=== PATIENT | female | born 1960 | race Caucasian/White ===

== ENCOUNTER 2016-11-17 07:51 | Day surgery (SDC) | payer BC, OTHER ==
[2016-11-15 17:17] VITALS: BMI 29.0
[2016-11-17 08:14] VITALS: TEMP 97.6
[2016-11-17] MEDS: LACTATED RINGERS 1,000 ML IV SCH (08:22)
[2016-11-17 08:25] LABS: Glucose,Whole Blood 79 mg/dL (75-99)
[2016-11-17] MEDS ORDERED: LIDOCAINE 1% INJ 10MG/ML (20 ML MDV) ONE (08:51)
[2016-11-17] MEDS ORDERED: PROPOFOL 10 MG/ML 20 ML VIAL IV ONE (08:51)
--- NOTE | 2016-11-17 09:01 | P.GSHP ---
History of Present Illness H&P Date: 11/17/16 Chief Complaint: Screening Patient here today for colonoscopy. She denies bowel complaints. She is family history of colon cancer in her aunt. Past Medical History Past Medical History: Asthma, Hypertension, Osteoarthritis (OA), Pneumonia, Thyroid Disorder Additional Past Medical History / Comment(s): bruises easily, leaky valve, has had pneumonia 3 times,no longer taking meds for HTN,pleurisy Oct 2016,steroids 2015 History of Any Multi-Drug Resistant Organisms: None Reported Past Surgical History: Section, Cholecystectomy, Tonsillectomy Additional Past Surgical History / Comment(s): hemorhoids,ovarian cyst removal Past Anesthesia/Blood Transfusion Reactions: Postoperative Nausea & Vomiting ( PONV) Additional Past Anesthesia/Blood Transfusion Reaction / Comment(s): Pt states she has trouble coming out of it, and they have a hard time putting her under. No hx blood transfusion Past Psychological History: Anxiety Smoking Status: Never smoker Past Alcohol Use History: Rare Past Drug Use History: None Reported - Past Family History Father Additional Family Medical History / Comment(s): heart problems Mother Family Medical History: Hypertension Additional Family Medical History / Comment(s): heart problems,pt's Aunt maternal side had colon CA Medications and Allergies Home Medications Medication Instructions Recorded Confirmed Type Levothyroxine Sodium [Synthroid] 75 mcg PO QAM 06/08/14 11/17/16 History Naproxen 500 mg PO Q12HR PRN 11/15/16 11/17/16 History Allergies Allergy/AdvReac Type Severity Reaction Status Date / Time latex Allergy Rash/Hives Verified 11/17/16 08:15 prednisone Allergy Unknown-states Verified 11/17/16 08:15 "had recently without any problems" Sulfa (Sulfonamide Allergy states Verified 11/17/16 08:15 Antibiotics) "ear drop-caused ear to swell shut" Surgical - Exam Vital Signs Temp Pulse Resp BP Pulse Ox 97.6 F 81 18 135/94 98 11/17/16 08:13 11/17/16 08:13 11/17/16 08:13 11/17/16 08:13 11/17/16 08:13 Physical exam: General: Well-developed, well-nourished HEENT: Normocephalic, sclerae nonicteric Abdomen: Nontender, nondistended Extremities: No edema Neuro: Alert and oriented Assessment and Plan (1) Screening for colon cancer Narrative/Plan: Will proceed with colonoscopy. Status: Acute
--- NOTE | 2016-11-17 09:20 | P.PCN ---
Date of Procedure: 11/17/16 Procedure(s) Performed: PREOPERATIVE DIAGNOSIS: Colon cancer screening POSTOPERATIVE DIAGNOSIS: Normal colon PROCEDURE: Colonoscopy ANESTHESIA: MAC SURGEON: Yazan Bowens M.D. SPECIMENS: None ENDOSCOPIC PROCEDURE: The patient was placed on the endoscopy table in the left decubitus position. The Olympus colonoscope was inserted into the anus and passed under direct visualization to the base of the cecum. The appendiceal orifice was visualized. From that point the scope was slowly withdrawn inspecting all surfaces carefully. There were no neoplastic inflammatory or polypoid lesions throughout the cecum, ascending, transverse, descending, sigmoid and rectum. There was no diverticulosis noted. Digital rectal examination was normal. The patient was taken to the recovery room in stable condition per anesthesia guidelines. RECOMMENDATIONS: Increase fiber. Follow colonoscopy 10 years.
[2016-11-17 09:21] VITALS: RESP 16
[2016-11-17 09:49] VITALS: BP 122/71; PULSE 77
== END 2016-11-17 10:24 | disposition home or self-care (01) ==
LOC: ORWHC2ENDO 07:51
PROVIDERS: ATTEND Surgery
DX: Z12.11 Encounter for screening for malignant neoplasm of colon (principal); Z80.0 Family history of malignant neoplasm of digestive organs; J45.909 Unspecified asthma, uncomplicated; E07.9 Disorder of thyroid, unspecified; M19.90 Unspecified osteoarthritis, unspecified site; Z79.899 Other long term (current) drug therapy; Z88.2 Allergy status to sulfonamides; Z88.8 Allergy status to other drugs, medicaments and biological substances; Z91.040 Latex allergy status; Z79.1 Long term (current) use of non-steroidal anti-inflammatories (NSAID)
CPT/HCPCS: 81025; J2001; J2704; G0121; 99153

== ENCOUNTER 2017-02-08 17:55 | Observation (INO) | payer OTHER ==
[2017-02-08] MEDS ORDERED: ASPIRIN 81 MG CHEW PO STA ×2 (19:58→21:38)
--- NOTE | 2017-02-08 20:20 | ED ---
General Adult HPI - General Chief complaint: Recheck/Abnormal Lab/Rx Stated complaint: diff breathing,weakness Time Seen by Provider: 02/08/17 19:35 Source: patient, RN notes reviewed Mode of arrival: ambulatory Limitations: no limitations - History of Present Illness Initial comments: 56 yo female presents to the ER with cc of chest pain and pressure. Patient states she has been having this pain and shortness of breath since last Sunday. Patient states that when she developed that she developed some right thigh pain. Patient states she's history of cluster headaches. Patient states it radiated into her head. Patient states there is no changes in vision. Patient states that her headache resolved but she continues to have this chest pain and pressure. Patient states sometimes it'll radiate up into the neck but that has been a few days. Patient states the headache is gone but she continues to have chest pain. Patient states today she just continued to feel on so she was doctor and was referred here. At this time patient's chest pressure. Patient denies any recent fever, chills, back pain, abdominal pain, nausea vomiting, numbness or tingling, dysuria or hematuria, constipation or diarrhea, headaches or visual changes, or any other current symptoms. - Related Data Home Medications Medication Instructions Recorded Confirmed Levothyroxine Sodium [Synthroid] 75 mcg PO QAM 06/08/14 02/08/17 Ascorbic Acid [Vitamin C] 500 mg PO DAILY 02/08/17 02/08/17 Cholecalciferol [Vitamin D3] 1,000 unit PO DAILY 02/08/17 02/08/17 Magnesium 200 mg PO DAILY 02/08/17 02/08/17 Multivitamins, Thera [Multivitamin 1 tab PO DAILY 02/08/17 02/08/17 (formulary)] Allergies Allergy/AdvReac Type Severity Reaction Status Date / Time latex Allergy Rash/Hives Verified 02/08/17 19:41 prednisone Allergy Unknown-states Verified 02/08/17 19:41 "had recently without any problems" Sulfa (Sulfonamide Allergy states Verified 02/08/17 19:41 Antibiotics) "ear drop-caused ear to swell shut" Review of Systems ROS Statement: Those systems with pertinent positive or pertinent negative responses have been documented in the HPI. ROS Other: All systems not noted in ROS Statement are negative. Past Medical History Past Medical History: Asthma, Hypertension, Osteoarthritis (OA), Pneumonia, Thyroid Disorder Additional Past Medical History / Comment(s): bruises easily, leaky valve, has had pneumonia 3 times,no longer taking meds for HTN,pleurisy Oct 2016,steroids 2016 History of Any Multi-Drug Resistant Organisms: None Reported Past Surgical History: Section, Cholecystectomy, Tonsillectomy Additional Past Surgical History / Comment(s): hemorhoids,ovarian cyst removal Past Anesthesia/Blood Transfusion Reactions: Postoperative Nausea & Vomiting ( PONV) Additional Past Anesthesia/Blood Transfusion Reaction / Comment(s): Pt states she has trouble coming out of it, and they have a hard time putting her under. No hx blood transfusion Past Psychological History: Anxiety Smoking Status: Never smoker Past Alcohol Use History: None Reported Past Drug Use History: None Reported - Past Family History Father Additional Family Medical History / Comment(s): heart problems Mother Family Medical History: Hypertension Additional Family Medical History / Comment(s): heart problems,pt's Aunt maternal side had colon CA General Exam - General Exam Comments Initial Comments: General: The patient is awake and alert, in no distress, and does not appear acutely ill. Eye: Pupils are equal, round and reactive to light, extra-ocular movements are intact; there is normal conjunctiva bilaterally. No signs of icterus. Ears, nose, mouth and throat: There are moist mucous membranes. Neck: The neck is supple, there is no tenderness. Cardiovascular: There is a regular rate and rhythm. No murmur, rub or gallop is appreciated. Respiratory: Lungs are clear to auscultation, respirations are non-labored, breath sounds are equal. No wheezes, stridor, rales, or rhonchi. Gastrointestinal: Soft, non-distended, non-tender abdomen without masses or organomegaly noted. There is no rebound or guarding present. No CVA tenderness. Bowel sounds are unremarkable. Back: There is no tenderness to palpation in the midline. There is no obvious deformity. No rashes noted. Musculoskeletal: Normal ROM, no tenderness, There is no pedal edema. There is no calf tenderness or swelling. Sensation intact. Pulses equal bilaterally 2+. Neurological: CN II-XII intact, There are no obvious motor or sensory deficits. Coordination appears grossly intact. Speech is normal. Skin: Skin is warm and dry and no rashes or lesions are noted. Psychiatric: Cooperative, appropriate mood & affect, normal judgment. Limitations: no limitations Course Vital Signs 02/08/17 18:00 Temperature 97.8 F Pulse Rate 73 Respiratory 18 Rate Blood Pressure 137/80 O2 Sat by Pulse 98 Oximetry EKG Findings - EKG Comments: EKG Findings:: normal sinus rhythm 63 bpm, normal axis, no atopy, no S-T depressions or elevations, Medical Decision Making - Medical Decision Making 56-year-old female presents emergency Department with a chief complaint of chest pressure and shortness of breath. at this time patient's blood work and imaging does appear to be reviewed and does not show any acute processes. At this time we will admit the patient for cardiac rule out. We discussed this with the patient was in agreement with the plan and all questions have been answered. Patient will be admitted to Dr. coker. - Lab Data Result diagrams: 02/08/17 20:15 02/08/17 20:15 Lab Results 02/08/17 02/08/17 02/08/17 Range/Units 20:15 20:15 20:15 WBC 7.4 (3.8-10.6) k/uL RBC 4.93 (3.80-5.40) m/uL Hgb 15.7 (11.4-16.0) gm/dL Hct 46.0 (34.0-46.0) % MCV 93.2 (80.0-100.0) fL MCH 31.8 (25.0-35.0) pg MCHC 34.1 (31.0-37.0) g/dL RDW 12.2 (11.5-15.5) % Plt Count 218 (150-450) k/uL Neutrophils % 49 % Lymphocytes % 39 % Monocytes % 5 % Eosinophils % 3 % Basophils % 1 % Neutrophils # 3.6 (1.3-7.7) k/uL Lymphocytes # 2.9 (1.0-4.8) k/uL Monocytes # 0.4 (0-1.0) k/uL Eosinophils # 0.2 (0-0.7) k/uL Basophils # 0.1 (0-0.2) k/uL PT (9.0-12.0) sec INR (<1.1) APTT (22.0-30.0) sec Sodium 142 (137-145) mmol/L Potassium 3.9 (3.5-5.1) mmol/L Chloride 105 (98-107) mmol/L Carbon Dioxide 25 (22-30) mmol/L Anion Gap 12 mmol/L BUN 16 (7-17) mg/dL Creatinine 0.68 (0.52-1.04) mg/dL Est GFR (MDRD) Af Amer >60 (>60 ml/min/1.73 sqM) Est GFR (MDRD) Non-Af >60 (>60 ml/min/1.73 sqM) Glucose 82 (74-99) mg/dL Calcium 9.7 (8.4-10.2) mg/dL Magnesium 2.3 (1.6-2.3) mg/dL Total Bilirubin 0.8 (0.2-1.3) mg/dL AST 40 H (14-36) U/L ALT 48 (9-52) U/L Alkaline Phosphatase 89 (38-126) U/L Total Creatine Kinase 98 (30-135) U/L CK-MB (CK-2) 1.0 (0.0-2.4) ng/mL CK-MB (CK-2) Rel Index 1.0 Troponin I <0.012 (0.000-0.034) ng/mL Total Protein 7.5 (6.3-8.2) g/dL Albumin 4.3 (3.5-5.0) g/dL Amylase 49 (30-110) U/L Lipase 71 (23-300) U/L 02/08/17 Range/Units 20:15 WBC (3.8-10.6) k/uL RBC (3.80-5.40) m/uL Hgb (11.4-16.0) gm/dL Hct (34.0-46.0) % MCV (80.0-100.0) fL MCH (25.0-35.0) pg MCHC (31.0-37.0) g/dL RDW (11.5-15.5) % Plt Count (150-450) k/uL Neutrophils % % Lymphocytes % % Monocytes % % Eosinophils % % Basophils % % Neutrophils # (1.3-7.7) k/uL Lymphocytes # (1.0-4.8) k/uL Monocytes # (0-1.0) k/uL Eosinophils # (0-0.7) k/uL Basophils # (0-0.2) k/uL PT 10.6 (9.0-12.0) sec INR 1.0 (<1.1) APTT 24.6 (22.0-30.0) sec Sodium (137-145) mmol/L Potassium (3.5-5.1) mmol/L Chloride (98-107) mmol/L Carbon Dioxide (22-30) mmol/L Anion Gap mmol/L BUN (7-17) mg/dL Creatinine (0.52-1.04) mg/dL Est GFR (MDRD) Af Amer (>60 ml/min/1.73 sqM) Est GFR (MDRD) Non-Af (>60 ml/min/1.73 sqM) Glucose (74-99) mg/dL Calcium (8.4-10.2) mg/dL Magnesium (1.6-2.3) mg/dL Total Bilirubin (0.2-1.3) mg/dL AST (14-36) U/L ALT (9-52) U/L Alkaline Phosphatase (38-126) U/L Total Creatine Kinase (30-135) U/L CK-MB (CK-2) (0.0-2.4) ng/mL CK-MB (CK-2) Rel Index Troponin I (0.000-0.034) ng/mL Total Protein (6.3-8.2) g/dL Albumin (3.5-5.0) g/dL Amylase (30-110) U/L Lipase (23-300) U/L - Radiology Data Radiology results: report reviewed, image reviewed Disposition Clinical Impression: Unstable angina Disposition: ADMITTED IP TO THIS [facility] Condition: Stable Time of Disposition: 21:46 Decision Date: 02/08/17 Decision Time: 21:46
[2017-02-08 20:32] LABS: Basophils # (A) 0.1 k/uL (0-0.2); Basophils % (A) 1 %; CH 31.7; CHCM 34.2; Eosinophils # (A) 0.2 k/uL (0-0.7); Eosinophils % (A) 3 %; HDW 2.52; HGB 15.7 gm/dL (11.4-16.0); Luc # (Auto) 0.25; Luc % (Auto) 3; Lymphocytes # (A) 2.9 k/uL (1.0-4.8); Lymphocytes % (A) 39 %; MCH 31.8 pg (25.0-35.0); MCHC 34.1 g/dL (31.0-37.0); MCV 93.2 fL (80.0-100.0); Mean Platelet Volume 7.1; Monocytes # (A) 0.4 k/uL (0-1.0); Monocytes % (A) 5 %; Neutrophils # (A) 3.6 k/uL (1.3-7.7); Neutrophils % (A) 49 %; RBC 4.93 m/uL (3.80-5.40); RDW 12.2 % (11.5-15.5); WBC 7.4 k/uL (3.8-10.6); WBC (Perox) 7.76
[2017-02-08 20:41] LABS: Partial Thromboplastin Time 24.6 sec (22.0-30.0); Prothrombin Time 10.6 sec (9.0-12.0)
[2017-02-08 20:57] LABS: Creatine Kinase 98 U/L (30-135)
[2017-02-08 20:59] LABS: ALT 48 U/L (9-52); AST 40 U/L (14-36); Alkaline Phosphatase 89 U/L (38-126); Amylase 49 U/L (30-110); Anion Gap 12 mmol/L; Blood Urea Nitrogen 16 mg/dL (7-17); Calcium 9.7 mg/dL (8.4-10.2); Carbon Dioxide 25 mmol/L (22-30); Chloride 105 mmol/L (98-107); Glucose 82 mg/dL (74-99); Magnesium 2.3 mg/dL (1.6-2.3); Non-African American GFR(MDRD) >60 (>60 ml/min/1.73 sqM); Potassium 3.9 mmol/L (3.5-5.1); Sodium 142 mmol/L (137-145); Total Bilirubin 0.8 mg/dL (0.2-1.3); Total Protein 7.5 g/dL (6.3-8.2)
[2017-02-08 21:09] LABS: Troponin I <0.012 ng/mL (0.000-0.034)
--- NOTE | 2017-02-08 21:16 | CT ---
EXAMINATION TYPE: CT brain wo con DATE OF EXAM: 02/08/2017 9:06 PM COMPARISON: NONE HISTORY: PT STATES OF MELENDEZ AND DIZZINESS. CT DLP: 1016.8 mGycm Automated exposure control for dose reduction was used. FINDINGS: The ventricles and sulci appear normal. There is no mass effect nor midline shift. There is no sign o f intracranial hemorrhage. The calvarium is intact. IMPRESSION: Negative unenhanced head CT scan.
--- NOTE | 2017-02-08 21:25 | XR ---
EXAMINATION TYPE: XR chest 2V DATE OF EXAM: 02/08/2017 9:04 PM COMPARISON: 10/11/2016 HISTORY: Chest pain TECHNIQUE: Frontal and lateral views of the chest are obtained. FINDINGS: Heart and mediastinum are normal. Lungs are clear. Diaphragm is normal. Bony thorax is int act. There are no hilar masses. IMPRESSION: Normal chest. No change.
[2017-02-08] MEDS ORDERED: HEPARIN SODIUM,PORCINE 5,000 UNIT/ML 1 ML VIAL IV ONE (21:46)
[2017-02-08] MEDS ORDERED: NITROGLYCERIN SL TABS 0.4 MG TAB SUBLINGUAL PRN (21:46)
[2017-02-08] MEDS ORDERED: HEPARIN SODIUM,PORCINE/D5W PMX 25,000 UNIT in DEXTROSE/WATER 1 500ML.BAG IV SCH (22:00)
[2017-02-08] MEDS ORDERED: SODIUM CHLORIDE 0.9% 1,000 ML IV SCH (22:00)
[2017-02-08 23:16] VITALS: BMI 29.3
[2017-02-09] MEDS: NITROGLYCERIN OINT 1 INCH/GM PACKET TOPICAL SCH ×3 (00:39→12:19)
[2017-02-09 02:19] LABS: Creatine Kinase 76 U/L (30-135)
[2017-02-09 02:32] LABS: Creatine Kinase MB 0.9 ng/mL (0.0-2.4); Troponin I <0.012 ng/mL (0.000-0.034)
[2017-02-09] MEDS: ACETAMINOPHEN TAB 325 MG TAB PO PRN ×2 (04:52→09:22)
[2017-02-09 08:44] VITALS: TEMP 97.8
[2017-02-09] MEDS ORDERED: MULTIVITAMINS, THERA 1 EACH TAB PO SCH (09:00)
[2017-02-09] MEDS ORDERED: CHOLECALCIFEROL 1,000 UNIT TAB PO SCH (09:00)
[2017-02-09] MEDS ORDERED: ASPIRIN 325 MG TAB PO SCH (09:00)
[2017-02-09] MEDS ORDERED: LEVOTHYROXINE 75 MCG TAB PO SCH (09:00)
[2017-02-09] MEDS ORDERED: MAGNESIUM OXIDE 400 MG TAB PO SCH (09:00)
[2017-02-09] MEDS ORDERED: ASCORBIC ACID 500 MG TAB PO SCH (09:00)
[2017-02-09 09:08] VITALS: RESP 16
[2017-02-09 09:09] LABS: Cholesterol 178 mg/dL (<200); HDL Cholesterol 58 mg/dL (40-60); Triglycerides 44 mg/dL (<150)
[2017-02-09 09:17] LABS: Creatine Kinase 68 U/L (30-135)
[2017-02-09 09:28] LABS: Creatine Kinase MB 0.7 ng/mL (0.0-2.4); Troponin I <0.012 ng/mL (0.000-0.034)
--- NOTE | 2017-02-09 10:20 | CONS ---
DATE OF CONSULTATION: CHIEF COMPLAINT: Chest pain. Zina is a 56-year-old lady with history of hypothyroidism who presented to the hospital complaining of chest pain. She describes it as a chest pressure, mild to moderate intensity, came on at rest without definite radiation to neck, arm or back. This, however, initially started with an episode of migraine that lasted longer than it usually does. She had loss of vision, severe headache and a feeling of fatigue and tiredness. Due to which the primary care physician was concerned and she was sent to the ER. In the emergency room, she had extensive workup including the EKGs, brain scans, chest x-ray. Thus far myocardial infarction is ruled out. EKG does not reveal ischemic changes. I reviewed her prior records including cardiac catheterization done 2 years ago that revealed normal coronary arteries. I am not convinced that patient's chest discomfort is related to myocardial ischemia; however, to complete her workup I am going to do a stress test on her today. If this is negative, she will go home. If this is abnormal, will consider invasive angiography. If she goes home, she will follow up with Dr. Salgado. Past medical history is significant for cardiac catheterization and normal coronaries, hypothyroidism. Medications include Synthroid, vitamins C, D. Allergic to LATEX, PREDNISONE and SULFA. Family history is negative for premature coronary artery disease. Social history is negative for current smoking, EtOH abuse or drug abuse. REVIEW OF SYSTEMS: HEENT: Unremarkable. CARDIAC: As described above. RESPIRATORY: Negative. GI: Negative. GENITOURINARY: Negative. ALLERGY/IMMUNOLOGY: Negative. SKIN: Negative. MUSCULOSKELETAL: Significant for arthritis. PSYCHOSOCIAL: Negative. ENDOCRINE: Negative. HEMATOLOGIC: Negative. DERMATOLOGY: Negative. CONSTITUTIONAL: Negative. The rest of the system review is not relevant. On exam, comfortable at rest. Vital signs are stable. There is no jugular venous distention. Carotid upstroke is normal. There is no bruit. Chest exam reveals good air entry bilaterally. Heart exam reveals first and second heart sounds. No gallop. No murmur, no rub. Abdomen is soft, nontender. Exam of the extremities did not reveal edema. Peripheral pulses are felt. 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 Cardiac enzymes are negative. EKG does not reveal ischemic changes. ASSESSMENT: Precordial chest pain, atypical, probably noncardiac. I will obtain a stress echocardiogram on her. If this is negative, she will be discharged home and followed up through our office.
--- NOTE | 2017-02-09 12:18 | ECHOS ---
DATE OF SERVICE: 02/09/2017 AGE: 56Y SEX: F HT: 64 WT: 170 lbs. Protocol Prosper: X Others: Stress Echo Stage: II Dur. of Exercise: 4 minutes *Heart Rate Blood Pressure *Rest: 69 Rest: 162/81 * *Max. Achieved: 163 Maximum BP: 129/74 85% PMHR: 140 100% PMHR: 165 *METS: 4.6 INDICATIONS: MEDICATIONS: Baseline rhythm is sinus mechanism, rate of 69, right axis deviation, nonspecific ST-T wave changes. Baseline blood pressure 162/81 mmHg. Patient exercised on Prosper protocol for 4 minutes reaching peak rate 163 beats per minute, which is equal to 100% maximum predicted heart rate; peak blood pressure 129/74 mmHg. Test was terminated secondary to fatigue. There was no chest pain. Electrocardiographic monitoring revealed no evidence of diagnostic ischemic ST deviation. Baseline echocardiogram revealed normal wall motion. At peak exercise there was normal wall motion augmentation with no hypokinesis or dyskinesis. CONCLUSION: 1. Poor exercise tolerance with normal electrocardiograph response to exercise. 2. Normal stress echocardiogram with no evidence of stress-induced ischemia.
[2017-02-09 12:58] VITALS: BP 135/82; PULSE 71
--- NOTE | 2017-02-09 16:25 | HP ---
DATE OF ADMISSION: 02/08/2017 PRESENTING COMPLAINT: Not feeling well. HISTORY OF PRESENTING COMPLAINT: This is a very pleasant 56-year-old patient of Dr. Vicente. Patient's chronic stable medical conditions include asthma, hypothyroid. Patient is rather active. About a week ago there was an episode when patient was just not feeling well, had a headache, just felt tired, rundown, some chest discomfort, sweating; just not feeling well. Over the course of the week she continued to feel the same way and decided to come in. She was also having some chest pressure, some shortness of breath, some sweating that she gets anyway, some dizziness. She felt tired but, like stated, patient is normally very active with no prior cardiac history; hence decided to come in. REVIEW OF SYSTEMS: CONSTITUTIONAL: As above. HEENT: None. RESPIRATORY: As above. CARDIOVASCULAR: As above. GASTROINTESTINAL: None. GENITOURINARY: None. MUSCULOSKELETAL: None. DERMATOLOGICAL: None. HEMATOLOGICAL: None. LYMPHATICS: None. PSYCHIATRY: None. NEUROLOGICAL: None. PAST MEDICAL HISTORY: 1. Asthma. 2. Hypothyroid. 3. Leaky valve. PAST SURGICAL HISTORY: 1. . 2. Cholecystectomy. 3. Tonsillectomy. 4. Hemorrhoids. 5. Ovarian cyst removed. SOCIAL HISTORY: Some anxiety. No smoking. No alcohol. Works as a health care provider. . FAMILY HISTORY: Heart problems. HOME MEDICATIONS: 1. Multivitamin 1 tablet p.o. daily. 2. Magnesium 200 mg p.o. daily. 3. Synthroid 75 mcg p.o. daily. 4. Vitamin D3 1000 units p.o. daily. 5. Vitamin C 500 mg p.o. daily. ALLERGIES: 1. LATEX. 2. PREDNISONE. 3. SULFA. PHYSICAL EXAMINATION: VITALS ON PRESENTATION: Temperature 97.8, pulse 73, respiration 18, blood pressure 137/80, pulse ox 98% on room air. GENERAL APPEARANCE: Average build. Sitting up. Comfortable. EYES: Pupils equal. Conjunctivae normal. HEENT: Oral cavity normal. NECK: JVD not raised. Mass not palpable. RESPIRATORY: Effort normal. Lungs are clear. CARDIOVASCULAR: First and second sounds normal. No edema. ABDOMEN: Soft, nontender. Liver and spleen not palpable. LYMPHATIC: No lymph node palpable in neck or axillae. PSYCHIATRY: Alert and oriented x3. Mood and affect normal. NEUROLOGICAL: Pupils equal. Cranial nerves grossly intact. Power and sensation grossly intact. INVESTIGATIONS: White count 7.4, hemoglobin 15.7. Potassium 3.9. BUN and creatinine are normal. Troponin negative. EKG: normal sinus rhythm with some poor R-wave progression. ASSESSMENT: 1. This is a patient with one week of not feeling well, tired, rundown, aching, some shortness of breath. Need to rule out a cardiac cause. At the same time, will check patient's D-dimer to rule out PE. If that is negative, most likely this is a low-grade viral syndrome manifesting with multiple symptoms; because at her baseline patient is rather active and is rather well. 2. Intermittent asthma, stable. 3. Hypothyroidism. PLAN: Patient was put on aspirin. Home medications were resumed. Nitro paste. Cardiology was consulted, who ordered a stress test. D-dimer is being ordered. Care was discussed with the patient and her in detail.
--- NOTE | 2017-02-12 18:13 | DS ---
DATE OF ADMISSION: 02/08/2017 DATE OF DISCHARGE: 02/09/2017 FINAL DIAGNOSES: 1. Acute post viral fatigue syndrome. 2. Intermittent asthma. 3. Hypothyroidism. HOSPITAL COURSE: This patient presented with multiple symptoms, achiness, rundown, nonspecific chest component. PE was ruled out via d. dimer and patient did undergo a stress echocardiogram was unremarkable. Care was discussed with the patient. Troponins are negative. LDL was 111. On exam, lungs are clear. CARDIOVASCULAR: First and second sounds normal. DISCHARGE MEDICATIONS: 1. Synthroid 75 mcg p.o. daily. 2. Vitamin C 500 mg p.o. daily. 3. Vitamin D3 1000 units p.o. daily. 4. Magnesium 200 mg p.o. daily. 5. Multivitamin 1 tablet daily. 6. Tylenol 650 mg every 6 hours p.r.n. Follow up with Dr. Vicente in 3 days.
== END 2017-02-09 16:56 | disposition home or self-care (01) ==
LOC: EC 17:55 → 3OBS 21:46
PROVIDERS: ADMIT Hospitalist; ATTEND Hospitalist
DX: G93.3 Postviral and related fatigue syndromes (principal); R07.89 Other chest pain; J45.20 Mild intermittent asthma, uncomplicated; E03.9 Hypothyroidism, unspecified; I10 Essential (primary) hypertension; Z79.899 Other long term (current) drug therapy; Z82.49 Family history of ischemic heart disease and other diseases of the circulatory system; Z88.8 Allergy status to other drugs, medicaments and biological substances; Z91.040 Latex allergy status; Z88.2 Allergy status to sulfonamides; Z87.01 Personal history of pneumonia (recurrent); R07.2 Precordial pain
CPT/HCPCS: 96376; 96365; 99285; 36415; 93005; 93017; 93350; 85379; 80061; 80053; 82150; 82550 ×2; 82553 ×2; 83690; 83735; 84484 ×2; 85025; 85610; 85730 ×2; 71020; 70450; G0378 ×2; J1644 ×2; 96366

== ENCOUNTER → 2018-02-11 | Outpatient (CLI) | payer MEDICAID, OTHER ==
--- NOTE | 2018-02-11 09:32 | MM ---
Reason for exam: clinical finding. Last mammogram was performed 2 years and 3 months ago. History: Patient is postmenopausal. Family history of breast cancer in paternal aunt at age 50. Physical Findings: Nurse did not find any significant physical abnormalities on exam. MG 3D Diag Mammo W/Cad BRISEIDA Bilateral CC and MLO view(s) were taken. Prior study comparison: November 20, 2015, bilateral MG 3d screening mammo w/cad. September 24, 2014, bilateral MG screening mammo w CAD. The breast tissue is heterogeneously dense. This may lower the sensitivity of mammography. 1cm oval nodular asymmetry at 12 o'clock. Appears more defined. These results were verbally communicated with the patient and result sheet given to the patient on 02/11/18. ASSESSMENT: Incomplete: need additional imaging evaluation, BI-RAD 0 RECOMMENDATION: Ultrasound of the right breast. (11-1 o'clock)
--- NOTE | 2018-02-11 09:34 | USB ---
Reason for exam: additional evaluation requested from abnormal screening. History: Patient is postmenopausal. Family history of breast cancer in paternal aunt at age 50. US Breast Limited RT Left breast ultrasound demonstrates a 1.4 x 1.0 x 0.5cm oval, hypoechoic lesion at 12 o'clock but located deep, probably cystic. This likely corresponds to the mammographic finding. 6 month follow up recommended. These results were verbally communicated with the patient and result sheet given to the patient on 02/11/18. ASSESSMENT: Probably benign, BI-RAD 3 RECOMMENDATION: Follow-up diagnostic mammogram and ultrasound of the right breast in 6 months. (12 o'clock)
== END | disposition home or self-care (01) ==
LOC: RADMAMWWP 07:35
PROVIDERS: ATTEND Family Medicine
DX: N64.4 Mastodynia (principal); R92.8 Other abnormal and inconclusive findings on diagnostic imaging of breast
CPT/HCPCS: 77066; 76642; G0279

== ENCOUNTER → 2018-08-26 | Outpatient (CLI) | payer MEDICAID ==
--- NOTE | 2018-08-26 09:10 | MM ---
Reason for exam: follow-up at short interval from prior study. Last mammogram was performed 6 months ago. History: Patient is postmenopausal. Family history of breast cancer in paternal aunt at age 50. Physical Findings: Nurse did not find any significant physical abnormalities on exam. MG 3D Diag Mammo W/Cad RT CC, MLO, and ML view(s) were taken of the right breast. Prior study comparison: February 11, 2018, bilateral MG 3d diag mammo w/cad BRISEIDA. November 20, 2015, bilateral MG 3d screening mammo w/cad. The breast tissue is heterogeneously dense. This may lower the sensitivity of mammography. Stable 1.1cm elongated nodular asymmetry currently not well seen on MLO or lateral. Centrally and posteriorly on the CC view. Unchanged for 6 months. No significant new findings when compared with previous films. These results were verbally communicated with the patient and result sheet given to the patient on 08/26/18. ASSESSMENT: Incomplete: need additional imaging evaluation, BI-RAD 0 RECOMMENDATION: Ultrasound of the right breast.
--- NOTE | 2018-08-26 09:14 | USB ---
Reason for exam: additional evaluation requested from abnormal screening. History: Patient is postmenopausal. Family history of breast cancer in paternal aunt at age 50. US Breast RT Right complete breast ultrasound includes all four quadrants, the retroareolar region and axilla. Finding demonstrates a 1.1 x 0.6 x 0.5cm oval, hypoechoic, oval lesion at 12 o'clock, deep in position, likely a cyst, stable to smaller from previous, versus 1.4 x 0.5 x 1.0cm previously. Additional mammogram follow up recommended. These results were verbally communicated with the patient and result sheet given to the patient on 08/26/18. ASSESSMENT: Probably benign, BI-RAD 3 RECOMMENDATION: Follow-up diagnostic mammogram of both breasts in 6 months.
== END ==
LOC: RADMAMWWP 07:13
PROVIDERS: ATTEND Family Medicine
DX: R92.8 Other abnormal and inconclusive findings on diagnostic imaging of breast (principal)
CPT/HCPCS: 77061; 77065

== ENCOUNTER → 2018-10-07 | Day surgery (SDC) | payer BC, MEDICAID ==
[2018-10-07 11:36] VITALS: RESP 16; TEMP 97.7; BMI 28.6
--- NOTE | 2018-10-07 13:23 | USB ---
EXAMINATION TYPE: US breast aspiration single RT DATE OF EXAM: 10/07/2018 COMPARISON: 08/26/2018 CLINICAL HISTORY: R92.8 Abnormal mammogram. FINDINGS: Maximal barrier technique was utilized. The skin overlying a suitable path to the patient's mass was localized with ultrasound and the overlying skin prepped and draped. Preprocedural timeout was performed. Ultrasound was utilized with sterile technique. 10 cc of lidocaine buffered with bicarbonate was used for local anesthesia. An 18-gauge spinal needle was advanced under direct ultrasound guidance to the anechoic 1.1 cm mass along the chest wall and fine-needle aspiration was attempted, however only very scant viscous fluid was aspirated from the mass within the needle hub. Specimen submitted to Pathology. Following the procedure, hemostasis achieved and the patient is discharged in stable condition without complication. IMPRESSION: STATUS POST ULTRASOUND GUIDED ASPIRATION OF A PROBABLE HEMORRHAGIC/ PROTEINACEOUS RIGHT BREAST CYST WITH ONLY SCANT VISCOUS MATERIAL ASPIRATED, PATHOLOGY IS PENDING. IF PATHOLOGY IS NONDIAGNOSTIC 6 MONTH FOLLOW-UP ULTRASOUND COULD BE PERFORMED TO EVALUATE FOR INTERVAL GROWTH. Pathology Results: Benign RIGHT BREAST, ASPIRATE: Virtually acellular specimen, non-diagnostic. Recommendation Follow up ultrasound of the right breast in 6 months. NINAD
[2018-10-07 13:37] VITALS: BP 142/93; PULSE 63
== END | disposition home or self-care (01) ==
LOC: RADUSWWP 11:08
PROVIDERS: ATTEND Surgery
DX: R92.8 Other abnormal and inconclusive findings on diagnostic imaging of breast (principal); Z88.2 Allergy status to sulfonamides; Z88.8 Allergy status to other drugs, medicaments and biological substances; Z91.040 Latex allergy status
CPT/HCPCS: 88305; 76942; 10022; J2001

== ENCOUNTER → 2019-02-20 | Outpatient (CLI) | payer BC ==
--- NOTE | 2019-02-21 10:57 | MM ---
Reason for exam: screening (asymptomatic). Last mammogram was performed 6 months ago. History: Patient is postmenopausal. Family history of breast cancer in paternal aunt at age 50. Benign US breast aspiration single RT of the right breast, October 07, 2018. Physical Findings: A clinical breast exam by your physician is recommended on an annual basis and results should be correlated with mammographic findings. MG 3D Screening Mammo W/Cad Bilateral CC and MLO view(s) were taken. Prior study comparison: August 26, 2018, right breast MG 3d diag mammo w/cad RT. February 11, 2018, bilateral MG 3d diag mammo w/cad BRISEIDA. The breast tissue is heterogeneously dense. This may lower the sensitivity of mammography. Stable benign calcifications. There is no discrete abnormality. No significant changes when compared with prior studies. ASSESSMENT: Benign, BI-RAD 2 RECOMMENDATION: Routine screening mammogram of both breasts in 1 year.
== END | disposition home or self-care (01) ==
LOC: RADMAMWWP 16:08
PROVIDERS: ATTEND Surgery
DX: Z12.31 Encounter for screening mammogram for malignant neoplasm of breast (principal)
CPT/HCPCS: 77063; 77067

== ENCOUNTER → 2019-08-08 | Outpatient (CLI) | payer BC ==
--- NOTE | 2019-08-08 09:23 | US ---
EXAMINATION TYPE: US carotid duplex BILAT DATE OF EXAM: 08/08/2019 COMPARISON: NONE CLINICAL HISTORY: G45.9 TIA. rubber legs after resting, left leg numbness, no h/o stroke EXAM MEASUREMENTS: RIGHT: Peak Systolic Velocity (PSV) cm/sec ----- Right CCA: 78.9 ----- Right ICA: 77.3 ----- Right ECA: 74.7 ICA/CCA ratio: 1.0 RIGHT: End Diastole cm/sec ----- Right CCA: 33.7 ----- Right ICA: 35.4 ----- Right ECA: 21.5 LEFT: Peak Systolic Velocity (PSV) cm/sec ----- Left CCA: 77.1 ----- Left ICA: 72.5 ----- Left ECA: 53.2 ICA/CCA ratio: 0.9 LEFT: End Diastole cm/sec ----- Left CCA: 29.1 ----- Left ICA: 34.7 ----- Left ECA: 13.3 VERTEBRALS (direction of flow): Right Vertebral: Antegrade Left Vertebral: Antegrade Rhythm: Normal Mild homogeneous plaque with no significant stenosis seen IMPRESSION: 1. Mild homogeneous plaque with no significant hemodynamic stenosis bilaterally. Criteria for Assigning % of Stenosis / Diameter reduction (Estimation based on the indirect measurements of the internal carotid artery velocities (ICA PSV). 1. Normal (no stenosis)=ICA PSV < 125 cm/s: ratio < 2.0: ICA EDV<40 cm/s. 2. Less than 50% stenosis=ICA PSV < 125 cm/s: ratio < 2.0: ICA EDV<40 cm/s. 3. 50 to 69% stenosis=ICA PSV of 125 to 230 cm/s: ration 2.0 ? 4.0: ICA EDV 40-100 cm/s. 4. Greater than 70% stenosis to near occlusion= ICA PSV > 230 cm/s: ratio > 4.0: ICA EDV > 100 cm/s. 5. Near occlusion= ICA PSV velocities may be low or undetectable: variable ratio and ICA EDV. 6. Total occlusion=unable to detect flow.
== END | disposition home or self-care (01) ==
LOC: RADUSMAIN 08:38
PROVIDERS: ATTEND Family Medicine
DX: R00.1 Bradycardia, unspecified (principal); I65.23 Occlusion and stenosis of bilateral carotid arteries
CPT/HCPCS: 93225; 93226; 93880

== ENCOUNTER → 2019-08-11 | Outpatient (CLI) | payer BC | END | disposition home or self-care (01) | LOC: RADMRIMAIN 20:47 | PROVIDERS: ATTEND Family Medicine | DX: Z53.9 Procedure and treatment not carried out, unspecified reason (principal) ==

== ENCOUNTER → 2019-10-01 | Outpatient (CLI) | payer BC ==
--- NOTE | 2019-10-01 14:08 | MR ---
EXAMINATION TYPE: MR brain wo/w con DATE OF EXAM: 10/01/2019 COMPARISON: 02/08/2017 CT brain HISTORY: Ataxic gait TECHNIQUE: Multiplanar, multisequence images of the brain and brainstem is performed without and with IV contras t, utilizing 7 mL intravenous Gadavist . FINDINGS: Diffusion weighted images demonstrate no evidence of a recent infarct or other diffusion ab normality. Mild generalized degenerative change with greater involvement of the cerebellum. Changes of chronic sinusitis noted. Midline structures demonstrate normal morphology. The craniocerv ical junction appears within normal limits. Post contrast images demonstrate no abnormal enhancement . The dural venous sinuses appear patent. There are few (approximately 5) focal areas of scattered white matter abnormal signal. All measure le ss than 5 mm. No enhancing lesions. IMPRESSION: 1. Mild generalized degenerative change with more moderate degenerative change seen involving the cer ebellum. Correlate for symptoms related to cerebellar atrophy. 2. A few scattered areas of nonspecific white matter changes can be seen with hypertension, migraine headaches, or remote microvascular disease. Demyelinating process not entirely excluded correlate cli nically.
== END ==
LOC: RADMRIMAIN 10:36
PROVIDERS: ATTEND Family Medicine
DX: G93.89 Other specified disorders of brain (principal); R90.89 Other abnormal findings on diagnostic imaging of central nervous system
CPT/HCPCS: 70553; A9585

== ENCOUNTER → 2021-06-01 | Outpatient (CLI) | payer BC ==
--- NOTE | 2021-06-01 11:34 | MM ---
Reason for exam: screening (asymptomatic). Last mammogram was performed 2 years and 3 months ago. History: Patient is postmenopausal. Family history of breast cancer in paternal aunt at age 50. Benign US breast aspiration single RT of the right breast, October 07, 2018. Physical Findings: A clinical breast exam by your physician is recommended on an annual basis and results should be correlated with mammographic findings. MG 3D Screening Mammo W/Cad Bilateral CC and MLO view(s) were taken. Prior study comparison: February 20, 2019, bilateral MG 3d screening mammo w/cad. August 26, 2018, right breast MG 3d diag mammo w/cad RT. The breast tissue is heterogeneously dense. This may lower the sensitivity of mammography. ASSESSMENT: Negative, BI-RAD 1 RECOMMENDATION: Routine screening mammogram of both breasts in 1 year.
== END | disposition home or self-care (01) ==
LOC: RADMAMWWP 06:54
PROVIDERS: ATTEND Family Medicine
DX: Z12.31 Encounter for screening mammogram for malignant neoplasm of breast (principal); Z78.0 Asymptomatic menopausal state; Z80.3 Family history of malignant neoplasm of breast
CPT/HCPCS: 77063; 77067

== ENCOUNTER → 2021-09-01 | Outpatient (CLI) | payer BC ==
--- NOTE | 2021-09-01 16:55 | MR ---
EXAMINATION TYPE: MR knee RT wo con DATE OF EXAM: 09/01/2021 COMPARISON: Outside radiograph 08/16/2021 HISTORY: 60-year-old female Right knee pain and swelling x 1 year TECHNIQUE: Multiplanar, multisequence imaging of the right knee is performed without IV contrast. FINDINGS: The ACL shows some degenerative signal but is intact. PCL is intact. Intermediate signal within the MCL suggests remote sprain but remains intact. LCL comp sterling is intact. Small 4 mm loose body along the popliteus tendon sheath. There is degenerative signal extending throughout the medial meniscus without discrete tear. There is a focal high-grade cartilage fissure along the mid weightbearing to central portion of the m edial femoral condyle and mild diffuse thinning of medial compartment articular cartilage volume. Mild diffuse thinning of lateral compartment articular cartilage volume. More moderate to high-grade cartilage loss along the posterior weight-bearing aspect of the lateral femoral condyle measuring 1.4 cm AP by 5 mm wide (sagittal series 301 image 21). Lateral meniscus is intact. There is severe loss of articular cartilage along the mid patella and medial patellar facet with reac tive subchondral signal changes. Marginal spurring of the patellofemoral compartment. Extensor mechanism is intact. Small knee joint effusion without Pinto's cyst. Nonspecific anterior soft tissue swelling. Normal popliteal artery anatomy. Mild generalized muscle atrophy. No suspicious bone marrow replaceme nt. IMPRESSION: 1. Severe loss of articular cartilage along the mid patella and medial patellar facet. 2. Focal high-grade cartilage fissure along the mid, central to weightbearing portion of the medial f emoral condyle. Degenerative signal within the medial meniscus without discrete tear. 3. Moderate to high-grade cartilage loss along the posterior weightbearing aspect of the lateral femo ral condyle measuring 1.4 cm AP by 5 mm wide. 4. Small 4 mm loose body along the popliteus tendon sheath. Small knee joint effusion likely reactive to the OA.
== END | disposition home or self-care (01) ==
LOC: RADMRIMAIN 12:40
PROVIDERS: ATTEND Orthopaedic Surgery
DX: M25.461 Effusion, right knee (principal)

== ENCOUNTER → 2021-09-29 | Outpatient (CLI) | payer BC ==
[2021-09-29 14:31] LABS: Basophils # (A) 0.1 k/uL (0-0.2); Basophils % (A) 1 %; Eosinophils # (A) 0.2 k/uL (0-0.7); Eosinophils % (A) 3 %; HCT 44.4 % (34.0-46.0); Lymphocytes # (A) 2.7 k/uL (1.0-4.8); Lymphocytes % (A) 39 %; MCH 32.2 pg (25.0-35.0); MCHC 33.8 g/dL (31.0-37.0); Mean Platelet Volume 7.6; Monocytes # (A) 0.4 k/uL (0-1.0); Monocytes % (A) 6 %; Neutrophils # (A) 3.3 k/uL (1.3-7.7); Neutrophils % (A) 48 %; Platelet Count 262 k/uL (150-450); RBC 4.68 m/uL (3.80-5.40); RDW 12.7 % (11.5-15.5)
[2021-09-29 14:56] LABS: Potassium 4.4 mmol/L (3.5-5.1)
== END | disposition home or self-care (01) ==
LOC: LABPAT 13:21
PROVIDERS: ATTEND Orthopaedic Surgery
DX: Z01.818 Encounter for other preprocedural examination (principal); M23.91 Unspecified internal derangement of right knee; R94.31 Abnormal electrocardiogram [ECG] [EKG]
CPT/HCPCS: 36415; 80051; 85025; 93005

== ENCOUNTER 2021-10-27 12:41 | Day surgery (SDC) | payer BC ==
[2021-10-25 15:27] VITALS: BMI 28.6
--- NOTE | 2021-10-26 20:23 | HP ---
HISTORY AND PHYSICAL REASON FOR ADMISSION: Surgery 10/27/2021 HISTORY OF PRESENT ILLNESS: Zina Delong is a 61-year-old patient seen with progressive right knee pain. We discussed options for treatment. She elected to proceed with a right knee arthroscopy. Consent obtained. PAST MEDICAL HISTORY: Hypertension, hypothyroidism. PAST SURGICAL HISTORY: Noncontributory. DAILY MEDICATIONS: Levothyroxine, valsartan, vitamins and aspirin. ALLERGIES: SULFA. SOCIAL HISTORY: She denies tobacco use. PHYSICAL EVALUATION OF THE RIGHT KNEE: Range of motion 0-125. Mild effusion. Tenderness medial joint line. Positive medial Chance's. Ligaments stable. Hip rotation without pain. Distal neurovascular exam intact. RADIOGRAPHS: Radiographs of the right knee reveal moderate osteoarthritis. MRI right knee revealed osteoarthritis, loose body and effusion. IMPRESSION: 1. Internal derangement right knee loose body, probable osteochondral tear. 2. Hypertension. 3. Hypothyroidism. PLAN: Right knee arthroscopy with chondroplasty, removal loose body and debridement. Surgery 10/27/2021. MMODL / IJN: [id number] /
[~2021-10-27 12:41] MED LIST: HYDROmorphone 0.5 MG/0.5 ML SYRINGE IVP PRN; LIDOCAINE 1% (10MG/ML) FOR IV START INTRADERMA PRN; MIDAZOLAM 2 MG/2 ML VIAL IV PRN; ONDANSETRON 4 MG/2 ML VIAL IVP ONE
[2021-10-27 14:31] VITALS: TEMP 97.4
[2021-10-27] MEDS: LACTATED RINGERS 1,000 ML IV SCH ×2 (14:31→15:35)
[2021-10-27] MEDS ORDERED: DEXAMETHASONE SOD PHOSPHATE 4 MG/ML 1 ML VIAL IVP ONE (14:35)
[2021-10-27] MEDS ORDERED: PROPOFOL 10 MG/ML 20 ML VIAL IV ONE (15:33)
[2021-10-27] MEDS ORDERED: LIDOCAINE 1% INJ 10MG/ML (20 ML MDV) ONE (15:33)
[2021-10-27] MEDS ORDERED: .fentaNYL (PF) 50 MCG/ML 2 ML AMP ONE (15:33)
[2021-10-27] MEDS ORDERED: MIDAZOLAM 2 MG/2 ML VIAL ONE (15:33)
[2021-10-27] MEDS ORDERED: SUCCINYLCHOLINE CHLORIDE 100 MG/5 ML SYR IV ONE (15:33)
[2021-10-27] MEDS ORDERED: BUPIVACAINE (PF) 0.25% 30 ML VIAL SQ ONE ×2 (15:36→16:00)
--- NOTE | 2021-10-27 16:23 | P.OP ---
Date of Procedure: 10/27/21 Preoperative Diagnosis: Internal derangement right knee Postoperative Diagnosis: 1. Tear medial meniscus right knee 2. Tear lateral meniscus right knee 3. Grade 2/3 chondromalacia medial femoral condyle right knee 4. Grade 2 chondromalacia patella right knee 5. Reactive synovitis medial, lateral and suprapatellar compartments right knee Procedure(s) Performed: 1. Arthroscopic partial medial and lateral meniscectomy right knee 2. Arthroscopic chondroplasty medial condyle right knee 3. Arthroscopic chondroplasty patella right knee 4. Arthroscopic partial synovectomy medial, lateral and suprapatellar compartments right knee Anesthesia: ELMIRAA, local Surgeon: Justyn Cao Estimated Blood Loss (ml): 6 Pathology: none sent Condition: stable Disposition: PACU Indications for Procedure: 61-year-old patient seen with progressive right knee pain. After treatment op tions were discussed, she elected to proceed with arthroscopy. Operative Findings: See description of procedure Description of Procedure: Patient was taken to the operative suite. Patient underwent a general anesthetic by the department of anesthesia. Patient was given preoperative antibiotics. The right lower extremity was placed in a well-padded arthroscopic leg gomez. The right leg was prepped and draped in the normal sterile orthopedic fashion. A lateral parapatellar and suprapatellar incision was made. Trochars were inserted. Arthroscopy was initiated. Suprapatellar pouch revealed diffuse thick reactive synovitis. The patellofemoral joint appeared to articulate congruently. There was grade 2 chondromalacia of the patella with some osteochondral tears present. The scope was guided into the medial gutter. No loose bodies or plica were identified. The scope was then guided into the medial compartment. A medial parapatellar incision was made. Trocar inserted followed by probe. There was a tear involving the posterior horn medial meniscus. There were grade 2/3 chondromalacia changes medial femoral condyle with a large osteochondral flap tear present. There was thick reactive synovitis anteriorly. I performed a partial medial meniscectomy down to stable meniscal tissue. I performed a chondroplasty medial femoral condyle getting down to stable osteochondral tissue. I performed a partial synovectomy decompressing the thick reactive synovitis. The residual meniscus was probed and found to be stable. The residual osteochondral surface was stable. There was good decompression of the synovitis. Scope and probe were then guided into the intercondylar notch. Cruciates were identified, probed and found to be stable. The scope and probe were then guided into lateral compartment. There was a radial tear midbody lateral meniscus. There was no significant chondromalacia involving the lateral compartment. There was thick reactive synovitis anteriorly. I performed a partial lateral meniscectomy getting down to stable meniscal tissue. I performed a partial synovectomy decompressing the reactive synovitis. The shaver was removed. The residual meniscus was stable. There was good decompression of the synovitis. The scope was in guided back into the suprapatellar compartment. I introduced a motorized shaver into the super patellar compartment. I debrided some piecemeal fragments of meniscus that I encountered. I performed a chondroplasty of the patella getting down to stable osteochondral tissue. I performed a partial synovectomy. The shaver was removed. The residual osteochondral surface of the patella was stable. There was good decompression of the synovitis. I now took one more look around the entire knee, no residual debris. Instruments were now removed from the joint. The joint was infiltrated with .25% Marcaine. Steri-Strips were applied to the portal sites. Sterile dressings were applied. The patient was placed into a ROSEMARY hose. No tourniquet was utilized. The patient was awakened, transferred to a bed and taken to recovery stable satisfactory condition.
[2021-10-27 17:34] VITALS: RESP 18
[2021-10-27 17:57] VITALS: BP 145/78; PULSE 78
== END 2021-10-27 18:07 | disposition home or self-care (01) ==
LOC: OR 12:41
PROVIDERS: ATTEND Orthopaedic Surgery
DX: M23.91 Unspecified internal derangement of right knee (principal); M23.203 Derangement of unspecified medial meniscus due to old tear or injury, right knee; M23.200 Derangement of unspecified lateral meniscus due to old tear or injury, right knee; M22.41 Chondromalacia patellae, right knee; M65.861 Other synovitis and tenosynovitis, right lower leg; I10 Essential (primary) hypertension; E03.9 Hypothyroidism, unspecified; J45.909 Unspecified asthma, uncomplicated; Z98.891 History of uterine scar from previous surgery; Z98.890 Other specified postprocedural states; Z79.82 Long term (current) use of aspirin; Z79.890 Hormone replacement therapy; Z79.899 Other long term (current) drug therapy; Z88.2 Allergy status to sulfonamides; Z88.5 Allergy status to narcotic agent
CPT/HCPCS: 29880; J2250; J1100; J0690; J2405; J2001; J3010; J0330; J2704

== ENCOUNTER 2023-12-10 14:23 | Emergency (ER) | payer BC ==
[2023-12-10 14:48] VITALS: RESP 18
[2023-12-10 14:51] LABS: Basophils # (A) 0.1 k/uL (0-0.2); Basophils % (A) 1 %; Eosinophils # (A) 0.2 k/uL (0-0.7); Eosinophils % (A) 3 %; HCT 41.9 % (34.0-46.0); HGB 14.2 gm/dL (11.4-16.0); Lymphocytes # (A) 2.3 k/uL (1.0-4.8); Lymphocytes % (A) 35 %; MCH 32.3 pg (25.0-35.0); MCHC 33.7 g/dL (31.0-37.0); MCV 95.7 fL (80.0-100.0); Mean Platelet Volume 7.8; Monocytes # (A) 0.4 k/uL (0-1.0); Monocytes % (A) 6 %; Neutrophils # (A) 3.5 k/uL (1.3-7.7); Neutrophils % (A) 53 %; Platelet Count 176 k/uL (150-450); RBC 4.38 m/uL (3.80-5.40); RDW 11.9 % (11.5-15.5); WBC 6.6 k/uL (3.8-10.6)
[2023-12-10 15:07] LABS: ALT 27 U/L (4-34); AST 31 U/L (14-36); African American GFR (CKD) 82 (>60 ml/min/1.73 sqM); Albumin 3.8 g/dL (3.5-5.0); Alkaline Phosphatase 62 U/L (38-126); Anion Gap 4 mmol/L; Blood Urea Nitrogen 22 mg/dL (7-17); Calcium 9.4 mg/dL (8.4-10.2); Carbon Dioxide 29 mmol/L (22-30); Chloride 108 mmol/L (98-107); Glucose 93 mg/dL (74-99); Lipase 92 U/L (23-300); Non-African American GFR(CKD) 71 (>60 ml/min/1.73 sqM); Potassium 3.7 mmol/L (3.5-5.1); Sodium 141 mmol/L (137-145); Total Bilirubin 0.4 mg/dL (0.2-1.3); Total Protein 6.3 g/dL (6.3-8.2)
[2023-12-10 15:10] LABS: Partial Thromboplastin Time 23.6 sec (22.0-30.0); Prothrombin Time 10.6 sec (10.0-12.5)
--- NOTE | 2023-12-10 15:15 | XR ---
EXAMINATION TYPE: XR chest 2V DATE OF EXAM: 12/10/2023 COMPARISON: 02/08/2017 HISTORY: Shortness of breath TECHNIQUE: Frontal and lateral views of the chest are obtained. FINDINGS: Scattered senescent parenchymal changes noted. Hyperinflation compatible with COPD. No evidence for infiltrate. No evidence for atelectasis. Heart size is stable. Mediastinal structures are stable and grossly unremarkable. No evidence for hilar prominence. Degenerative changes dorsal spine. IMPRESSION: 1. No evidence for acute pulmonary disease.
[2023-12-10] MEDS: methocarbamoL 750 MG TAB PO STA (15:49)
--- NOTE | 2023-12-10 16:31 | ED ---
Chest Pain HPI - General Chief Complaint: Chest Pain Stated Complaint: back pain Time Seen by Provider: 12/10/23 14:32 Source: patient, EMS Mode of arrival: EMS Limitations: no limitations - History of Present Illness Initial Comments: 63-year-old female presents the emergency department reporting 2 shortness of breath. States that she has a history of asthma and thought her asthma was acting up on her. She went into an urgent care and reported her symptoms. This included chest and back pain. Because of the symptoms they did call an am bulance to transport her to the hospital. She did receive 324 mg of aspirin, nitro and they placed an IV. Patient arrives and states that her pressure sensation is still present. She denies fevers, chills or cough. No nausea or vomiting. No history of cardiac disease. No other alleviating, precipitating or modifying [id number] male presents the emergency department reporting palpitations. Mother is at bedside and helps provide the history. Patient has a longstanding history of anorexia and chronic abdominal pain for which she is under the care of a GI doctor. As of recently the patient has been able to gain some weight but continues to suffer from intermittent palpitations. Reports today that he was having persistent elevation in his heart rate. Mother is concerned that the level of his anorexia has caused new problems with his heart. He denies any chest pain. Continues to have his generalized abdominal pain. No fevers or chills. Denies any nausea or vomiting. No family history of cardiac disease. Denies any shortness of breath. No fevers, chills or cough. No other alleviating, precipitating or modifying factors - Related Data Home Medications Medication Instructions Recorded Confirmed Levothyroxine Sodium [Synthroid] 75 mcg PO QAM 06/08/14 10/25/21 Cholecalciferol [Vitamin D3 (25 5,000 unit PO DAILY 02/08/17 10/25/21 Mcg = 1000 Iu)] Multivitamins, Thera [Multivitamin 1 tab PO DAILY 02/08/17 10/25/21 (formulary)] Aspirin [Adult Low Dose Aspirin EC] 81 mg PO DAILY 09/24/18 10/25/21 Vitamin E (Dl,Tocopheryl Acet) 400 unit PO DAILY 09/24/18 10/25/21 [Vitamin E] Ascorbic Acid [Vitamin C] 1,000 mg PO DAILY 10/25/21 10/25/21 Cyanocobalamin (Vitamin B-12) 500 mcg PO DAILY 10/25/21 10/25/21 [Vitamin B-12] Valsartan 40 mg PO 1500 10/25/21 10/25/21 Zinc 50 mg PO DAILY 10/25/21 10/25/21 Previous Rx's Medication Instructions Recorded HYDROcodone/APAP 5-325MG [[place] 1 tab PO Q6HR PRN #12 tab 10/27/21 5-325] Acetaminophen-Codeine 300-30mg 1 tab PO Q6HR PRN #12 tablet 12/10/23 [Tylenol #3] Allergies Allergy/AdvReac Type Severity Reaction Status Date / Time acetaminophen [From Vicodin] Allergy "Too Verified 12/10/23 14:30 Strong" bacitracin Allergy Rash/Hives Verified 12/10/23 14:30 [From Neosporin ([id number])] hydrocodone [From Vicodin] Allergy "Too Verified 12/10/23 14:30 Strong" latex Allergy Red Skin Verified 12/10/23 14:30 neomycin Allergy Rash/Hives Verified 12/10/23 14:30 [From Neosporin ([id number])] polymyxin B Allergy Rash/Hives Verified 12/10/23 14:30 [From Neosporin ([id number])] prednisone Allergy Unknown-states Verified 10/07/18 11:28 "had recently without any problems" Sulfa (Sulfonamide Allergy states Verified 12/10/23 14:30 Antibiotics) "ear drop-caused ear to swell shut" Review of Systems ROS Statement: Those systems with pertinent positive or pertinent negative responses have been documented in the HPI. ROS Other: All systems not noted in ROS Statement are negative. Past Medical History Past Medical History: Asthma, GERD/Reflux, Hypertension, Pneumonia, Thyroid Disorder Additional Past Medical History / Comment(s): Bruises easily. Leaky heart valve/palpitations. Hx Pneumonia X3, hx. Pleurisy 10/2016. History of Any Multi-Drug Resistant Organisms: None Reported Past Surgical History: Section, Cholecystectomy, Tonsillectomy Additional Past Surgical History / Comment(s): Hemorhoidectomy, ovarian cyst removal X3, oral surgery, colonoscopies. Past Anesthesia/Blood Transfusion Reactions: Previous Problems w/ Anesthesia Additional Past Anesthesia/Blood Transfusion Reaction / Comment(s): Pt states she has had trouble coming out of it, and they have had a hard time putting her under sometimes. Past Psychological History: Anxiety Smoking Status: Never smoker Past Alcohol Use History: None Reported Past Drug Use History: None Reported - Past Family History Father Additional Family Medical History / Comment(s): Heart problems. Mother Family Medical History: Hypertension Additional Family Medical History / Comment(s): Heart problems. General Exam Limitations: no limitations General appearance: alert, in no apparent distress Head exam: Present: atraumatic, normocephalic, normal inspection Eye exam: Present: normal appearance, PERRL, EOMI. Absent: scleral icterus, conjunctival injection, periorbital swelling ENT exam: Present: normal exam, mucous membranes moist Neck exam: Present: normal inspection. Absent: tenderness, meningismus, lymphadenopathy Respiratory exam: Present: normal lung sounds bilaterally. Absent: respiratory distress, wheezes, rales, rhonchi, stridor Cardiovascular Exam: Present: regular rate, normal rhythm, normal heart sounds. Absent: systolic murmur, diastolic murmur, rubs, gallop, clicks GI/Abdominal exam: Present: soft, normal bowel sounds. Absent: distended, tenderness, guarding, rebound, rigid Extremities exam: Present: normal inspection, full ROM, normal capillary refill. Absent: tenderness, pedal edema, joint swelling, calf tenderness Back exam: Present: normal inspection Neurological exam: Present: alert, oriented X3, CN II-XII intact Psychiatric exam: Present: normal affect, normal mood Skin exam: Present: warm, dry, intact, normal color. Absent: rash Course Vital Signs 12/10/23 12/10/23 12/10/23 14:26 15:04 17:01 Temperature 97.5 F L 98.2 F Pulse Rate 57 L 53 L 59 L Respiratory 18 18 18 Rate Blood Pressure 158/96 148/88 133/73 O2 Sat by Pulse 99 97 98 Oximetry Chest Pain MDM - MDM Was pt. sent in by a medical professional or institution (, PA, INTELLIGENCE CONSULTANT, urgent care, hospital, or jail...) When possible be specific @ -Patient sent in from urgent care Did you speak to anyone other than the patient for history (EMS, parent, family, police, friend...)? What history was obtained from this source @ -No Did you review nursing and triage notes (agree or disagree)? Why? @ -I reviewed and agree with nursing and triage notes Were old charts reviewed (outside hosp., previous admission, EMS record, old EKG, old radiological studies, urgent care reports/EKG's, jail records)? Report findings @ -I reviewed the patient's EKG from urgent care Differential Diagnosis (chest pain, altered mental status, abdominal pain women, abdominal pain men, vaginal bleeding, weakness, fever, dyspnea, syncope, headache, dizziness, GI bleed, back pain, seizure, CVA, palpatations, mental health, musculoskeletal)? @ -Differential Chest Pain: Stable Angina, Unstable Angina, STEMI, NSTEMI Aortic Dissection, Pneumothorax, Musculoskeletal, Esophageal Spasm GERD, Cholecystitis, Pancreatitis, Zoster, this is not meant to be an all-inclusive list. EKG interpreted by me (3pts min.). @ -Yes and demonstrates sinus bradycardia with a rate of 50. VA interval 147. QRS 86. QTc of 418. ST depression in lead III. No acute ST segment elevation X-rays interpreted by me (1pt min.). @ -Yes and demonstrates no acute process CT interpreted by me (1pt min.). @ -None done U/S interpreted by me (1pt. min.). @ -None done What testing was considered but not performed or refused? (CT, X-rays, U/S, labs)? Why? @ -None What meds were considered but not given or refused? Why? @ -None Did you discuss the management of the patient with other professionals (professionals i.e. , PA, INTELLIGENCE CONSULTANT, lab, RT, psych nurse, social services analyst, checker, teacher, probation officer, behavioral health case manager)? Give summary @ -No Was smoking cessation discussed for >3mins.? @ -No Was critical care preformed (if so, how long)? @ -No Were there social determinants of health that impacted care today? How? (Homelessness, low income, unemployed, alcoholism, drug addiction, transportation, low edu. Level, literacy, decrease access to med. care, fdc, rehab)? @ -No Was there de-escalation of care discussed even if they declined (Discuss DNR or withdrawal of care, Hospice)? DNR status @ -No What co-morbidities impacted this encounter? (DM, HTN, Smoking, COPD, CAD, Cancer, CVA, ARF, Chemo, Hep., AIDS, mental health diagnosis, sleep apnea, morbid obesity)? @ -Asthma, hypertension Was patient admitted / discharged? Hospital course, mention meds given and route, prescriptions, significant lab abnormalities, going to OR and other pertinent info. @ -Discharge. Up on arrival patient was placed in trauma 2. Patient placed on continuous pulse ox and cardiac monitoring. Laboratory studies are conducted. Twelve-lead EKG was performed. Patient sent for x-ray. Upon return the results they are discussed with the patient. EKG looks similar in comparison to her last EKG. Troponin level is negative. I did offer overnight observation in order to trend her troponins however patient wants to go home at this time. Recommend that she follow-up with her primary care doctor for further testing to include an echo and return for any new or worsening symptoms. Patient agreeable to plan she was discharged in stable condition Undiagnosed new problem with uncertain prognosis? @ -No Drug Therapy requiring intensive monitoring for toxicity (Heparin, Nitro, Insulin, Cardizem)? @ -No Were any procedures done? @ -No Diagnosis/symptom? @ -Acute atypical chest pain Acute, or Chronic, or Acute on Chronic? @ -Acute Uncomplicated (without systemic symptoms) or Complicated (systemic symptoms)? @ -Complicated Side effects of treatment? @ -No Exacerbation, Progression, or Severe Exacerbation? @ -No Poses a threat to life or bodily function? How? (Chest pain, [place], [place], pneumonia, PE, COPD, DKA, ARF, appy, cholecystitis, CVA, Diverticulitis, Homicidal, Suicidal, threat to staff... and all critical care pts) @ -No Disposition Clinical Impression: Chest pain, Back pain Disposition: HOME SELF-CARE Condition: Stable Instructions (If sedation given, give patient instructions): Noncardiac Chest Pain (ED) Additional Instructions: Please call and make an appointment with Dr. Salgado. Take the pain medications as needed. Return for any new or worsening symptoms Prescriptions: Acetaminophen-Codeine 300-30mg [Tylenol #3] 1 tab PO Q6HR PRN #12 tablet PRN Reason: pain Is patient prescribed a controlled substance at d/c from ED?: Yes When asked, does pt state using other controlled substances?: No If prescribed controlled substance>3 days was MAPS reviewed?: Prescribed <3 Days If opioid is for acute pain is fill amount 7 days or less?: Yes Referrals: Verito Phillip MD [Primary Care Provider] - 1-2 days Patric Salgado MD [STAFF PHYSICIAN] - 1-2 days Time of Disposition: 16:47
[2023-12-10] MEDS: ACET/COD 300 MG/30 MG STARTER PACK 6 TAB BTL PO STA (16:57)
[2023-12-10 17:03] VITALS: BP 133/73; PULSE 59; TEMP 98.2
== END 2023-12-10 17:02 | disposition home or self-care (01) ==
LOC: EC 14:23
DX: R07.89 Other chest pain (principal); M54.9 Dorsalgia, unspecified; I10 Essential (primary) hypertension; R00.1 Bradycardia, unspecified; J45.909 Unspecified asthma, uncomplicated; E07.9 Disorder of thyroid, unspecified; Z86.59 Personal history of other mental and behavioral disorders; Z79.890 Hormone replacement therapy; Z79.899 Other long term (current) drug therapy; Z88.2 Allergy status to sulfonamides; Z88.1 Allergy status to other antibiotic agents; Z88.5 Allergy status to narcotic agent; Z88.8 Allergy status to other drugs, medicaments and biological substances
CPT/HCPCS: 36415; 71046; 80053; 83690; 83735; 84484; 85025; 85379; 85610; 85730; 93005; 99285

== ENCOUNTER → 2023-12-13 | Outpatient (CLI) | payer BC ==
--- NOTE | 2023-12-13 08:31 | MM ---
Reason for Exam: Screening (asymptomatic). Last mammogram was performed 2 year(s) and 7 month(s) ago. Patient History: Menarche at age 12. First Full-Term at age 26. Postmenopausal. 10/07/2018, Benign Cyst Aspiration on the right side. Paternal aunt had breast cancer, age 50. Risk Values: Georgina 5 year model risk: 1.9%. NCI Lifetime model risk: 8.4%. Prior Study Comparison: 08/26/2018 Right Diagnostic Mammogram, [facility]. 02/20/2019 Bilateral Screening Mammogram, [facility]. 06/01/2021 Bilateral Screening Mammogram, [facility]. Tissue Density: The breast tissue is heterogeneously dense. This may lower the sensitivity of mammography. Findings: Analyzed By CAD. There is no suspicious group of microcalcifications or new suspicious mass. Overall Assessment: Negative, BI-RAD 1 Management: Screening Mammogram of both breasts in [address] [facility] will attempt to contact patient to return for supplemental views and ultrasound if indicated. Patient should continue monthly self-breast exams. A clinical breast exam by your physician is recommended on an annual basis. This exam should not preclude additional follow-up of suspicious palpable abnormalities. Note on Georgina scores and lifetime risk: 1. A Georgina score greater than 3% is considered moderate risk. If this is the case, consider specialist referral to assess eligibility for a risk reducing agent. 2. If overall lifetime risk for the development of breast cancer is 20% or higher, the patient may qualify for future screening with alternating mammogram and breast MRI. Electronically signed and approved by: Aram Swann DO
== END | disposition home or self-care (01) ==
LOC: RADMAMWWP 07:05
PROVIDERS: ATTEND Family Medicine
DX: Z12.31 Encounter for screening mammogram for malignant neoplasm of breast (principal); Z80.3 Family history of malignant neoplasm of breast; Z78.0 Asymptomatic menopausal state
CPT/HCPCS: 77063; 77067

== ENCOUNTER → 2025-05-12 | Outpatient (CLI) | payer BC ==
--- NOTE | 2025-05-12 11:12 | MM ---
Reason for Exam: Screening (asymptomatic). Last mammogram was performed 1 year(s) and 5 month(s) ago. Patient History: Menarche at age 12. First Full-Term at age 26. Postmenopausal. Patient has history of breast feeding. Patient used Hormonal Contraceptives for 5 years. 10/07/2018, Benign Cyst Aspiration on the right side. Paternal aunt had breast cancer, age 50. Risk Values: Georgina 5 year model risk: 1.9%. NCI Lifetime model risk: 8.1%. Prior Study Comparison: 02/20/2019 Bilateral Screening Mammogram, [facility]. 06/01/2021 Bilateral Screening Mammogram, [facility]. 12/13/2023 Bilateral MG 3D screening mammo w/cad, [facility]. Tissue Density: The breasts are heterogeneously dense, which may obscure small masses. Findings: Analyzed By CAD. Limited by dense tissues. Area of focal asymmetry anterior upper quadrant centrally in the breast appears more defined and incompletely disperses on 3-D images. This may represent superimposition shadow but further evaluation is recommended. Otherwise, no significant change. Overall Assessment: Incomplete: need additional imaging evaluation, BI-RAD 0 Management: Special View Mammogram of the left breast. [facility] will attempt to contact patient to return for supplemental views and ultrasound if indicated. [facility], , 05/12/2025 11:09 AM. Electronically signed and approved by: Elisa Valdovinos M.D. Radiologist
== END | disposition home or self-care (01) ==
LOC: RADMAMWWP 06:57
PROVIDERS: ATTEND Family Medicine
DX: Z12.31 Encounter for screening mammogram for malignant neoplasm of breast (principal); R92.333 Mammographic heterogeneous density, bilateral breasts; Z78.0 Asymptomatic menopausal state; Z92.0 Personal history of contraception; Z80.3 Family history of malignant neoplasm of breast
CPT/HCPCS: 77063; 77067

== ENCOUNTER → 2025-05-13 | Outpatient (CLI) | payer BC ==
--- NOTE | 2025-05-13 07:33 | MM ---
Reason for Exam: Additional evaluation requested from abnormal screening. Last screening mammogram was performed less than 1 month ago. Patient History: Menarche at age 12. First Full-Term at age 26. Postmenopausal. Patient has history of breast feeding. Patient used Hormonal Contraceptives for 5 years. 10/07/2018, Benign Cyst Aspiration on the right side. Paternal aunt had breast cancer, age 50. Risk Values: Georgina 5 year model risk: 1.9%. NCI Lifetime model risk: 8.1%. Prior Study Comparison: 06/01/2021 Bilateral Screening Mammogram, [facility]. 12/13/2023 Bilateral MG 3D screening mammo w/cad, [facility]. 05/12/2025 Bilateral MG 3D screening mammo w/cad, [facility]. Tissue Density: Left: The breasts are heterogeneously dense, which may obscure small masses. Findings: Analyzed By CAD. The area of lateral subareolar asymmetric density does not persist on additional or 3-D lateral views. Findings compatible with benign superimposition shadow. Overall Assessment: Benign, BI-RAD 2 Management: Screening Mammogram of both breasts in 1 year. Results were given to the patient verbally at the time of exam. Patient should continue monthly self-breast exams. A clinical breast exam by your physician is recommended on an annual basis. This exam should not preclude additional follow-up of suspicious palpable abnormalities. Note on Georgina scores and lifetime risk: 1. A Georgina score greater than 3% is considered moderate risk. If this is the case, consider specialist referral to assess eligibility for a risk reducing agent. 2. If overall lifetime risk for the development of breast cancer is 20% or higher, the patient may qualify for future screening with alternating mammogram and breast MRI. [facility], , 05/13/2025 7:29 AM. Electronically signed and approved by: Elisa Valdovinos M.D. Radiologist
== END | disposition home or self-care (01) ==
LOC: RADMAMWWP 07:08
PROVIDERS: ATTEND Family Medicine
DX: R92.8 Other abnormal and inconclusive findings on diagnostic imaging of breast (principal); R92.332 Mammographic heterogeneous density, left breast; Z78.0 Asymptomatic menopausal state; Z92.0 Personal history of contraception; Z80.3 Family history of malignant neoplasm of breast
CPT/HCPCS: 77061; 77065